=== PATIENT | male | born 1990 ===

== ENCOUNTER 2018-08-07 11:22 | Emergency (ER) | payer SELFPAY ==
--- NOTE | 2018-08-07 12:40 | UC ---
Skin Complaint HPI - HPI Summary HPI Summary: 28-year-old male from the [place] who is visiting the area and traveling. He found a tick on his left lower abdomen this morning which was not there last evening. - History of Current Complaint Chief Complaint: UCSkin Time Seen by Provider: 08/07/18 12:22 Stated Complaint: TICK Hx Obtained From: Patient Onset/Duration: Sudden Onset Skin Exposure Onset/Duration: Hours Ago Timing: Constant Onset Severity: Mild Current Severity: None Pain Intensity: 0 Location: Other - Left lower abdomen Aggravating Factor(s): Nothing Alleviating Factor(s): Nothing, Other - Patient remove the tick without difficulty this morning. It was not engorged. Associated Signs & Symptoms: Positive: Negative Related History: Insect Bite/Sting - Allergy/Home Medications Allergies/Adverse Reactions: Allergies Allergy/AdvReac Type Severity Reaction Status Date / Time No Known Allergies Allergy Verified 08/07/18 11:50 Home Medications: Home Medications Allergy Medication 1 tab PO DAILY 08/07/18 [History Confirmed 08/07/18] PMH/Surg Hx/FS Hx/Imm Hx Previously Healthy: Yes - Surgical History Surgical History: None - Family History Known Family History: Positive: Non-Contributory - Social History Alcohol Use: Occasionally Substance Use Type: None Smoking Status (MU): Current Some Day Smoker Review of Systems All Other Systems Reviewed And Are Negative: Yes Skin: Positive: Other - The tick has been removed this morning by the patient. He has just a small bruised area present in the left lower abdomen. Is Patient Immunocompromised?: No Physical Exam Triage Information Reviewed: Yes Appearance: Well-Appearing, No Pain Distress, Well-Nourished Vital Signs: Initial Vital Signs Temp 98.8 F 08/07/18 11:47 Pulse 62 08/07/18 11:47 Resp 16 08/07/18 11:47 BP 115/65 08/07/18 11:47 Pulse Ox 100 08/07/18 11:47 Vital Signs Reviewed: Yes Musculoskeletal Exam: Normal Neurological Exam: Normal Psychological Exam: Normal Skin: Positive: Other - The tick has been removed, he has a small bruised area in the left lower abdomen measuring approximately 3 mm in diameter. It is nontender on palpation and it appears the entire tick has been removed. Course/Dx - Course Course Of Treatment: Patient is comfortable here. According to CDC guidelines he isn't a very low risk for developing Lyme disease from this tick bite. It was not engorged, it was not on his abdomen last evening but when he took shower this morning it was and he removed it immediately. - Diagnoses Provider Diagnosis: Tick bite of abdomen Discharge - Sign-Out/Discharge Documenting (check all that apply): Patient Departure All imaging exams completed and their final reports reviewed: No Studies - Discharge Plan Condition: Good Disposition: HOME Patient Education Materials: Tick Bite (ED) Referrals: No Primary Care Phys,NOPCP [Primary Care Provider] - Additional Instructions: Over the next 2-4 weeks follow-up with your primary care provider or an urgent care center if you develop any fever, rashes, joint aches or any further concerns. - Billing Disposition and Condition Condition: GOOD Disposition: Home
== END 2018-08-07 12:45 | disposition home or self-care (01) ==
LOC: UCEAST 11:22
DX: S30.861A Insect bite (nonvenomous) of abdominal wall, initial encounter (principal); F17.200 Nicotine dependence, unspecified, uncomplicated; W57.XXXA Bitten or stung by nonvenomous insect and other nonvenomous arthropods, initial encounter; Y92.9 Unspecified place or not applicable
CPT/HCPCS: 99201; G0463